=== PATIENT | male | born 1985 | race Caucasian/White ===

== ENCOUNTER 2023-07-27 13:41 | Emergency (ER) | payer OTHER, SELFPAY ==
--- NOTE | ~2023-07-27 | CT_ITS ---
EXAMINATION: CT abdomen pelvis wo con DATE: 07/27/2023 15:28 INDICATION: Right upper quadrant abdominal pain. Right lower pain. Fall. TECHNIQUE: Computed tomography (CT) of the abdomen and pelvis was performed without intravenous contr ast. Automated exposure control and iterative reconstruction technique were employed. The dose-length product was 714.92 mGy-cm. COMPARISON: CT abdomen and pelvis 06/28/2019 FINDINGS: The visualized portions of the lung bases demonstrate minimal atelectasis. No pleural effus ion. The heart size is normal. No pericardial effusion. The liver is normal. There are changes of cho lecystectomy. The spleen, pancreas, adrenal glands, and kidneys are normal. There is no urolithiasis. There are no dilated loops of bowel. The appendix is not visualized. There are no pathologically enl arged lymph nodes. There is no free intraperitoneal fluid. There is 4 mm anterolisthesis of L5 on S1. There is moderate lower lumbar spondylosis. There are chronic bilateral L5 pars defects. IMPRESSION: 1. No acute posttraumatic findings. Reviewed, dictated and finalized at location E.
--- NOTE | ~2023-07-27 | XR_ITS ---
[id number] DATE: 07/27/2023 14:16 INDICATION: Fall off of truck. Anterolateral right rib pain. TECHNIQUE: PA chest 4 views of right ribs. COMPARISON: None FINDINGS: Dextroscoliosis of the thoracic spine. No displaced right rib fracture is detected. Normal heart size. No hilar or mediastinal enlargement. The lungs are clear of infiltrate or consolid ation. No pneumothorax. Status post cholecystectomy. IMPRESSION: No displaced rib fracture is detected No active cardiopulmonary disease Reviewed, dictated and finalized at Location A. Reviewed, dictated and finalized at location L.
[2023-07-27 14:01] VITALS: BP 124/76; PULSE 69; RESP 20; TEMP 37; O2SAT 99
[2023-07-27] MEDS: ACETAMINOPHEN 500 MG TABLET 1000 MG PO (15:30)
--- NOTE | 2023-07-27 15:41 | ED.FALL ---
HPI - Fall General Chief Complaint: Fall Stated Complaint: fall today, pain on side and with breathing Time Seen by Provider: 07/27/23 14:46 Source: patient Mode of arrival: ambulatory Limitations: no limitations History of Present Illness HPI Narrative: Patient is a 38-year-old male who presents ED with report of right rib pain. Patient reports he was unloading something out of the back of a dump truck when he slipped and fell off the side. He landed onto a wheelbarrow directly on his right side. He complains of pain to his right upper abdomen, right ribs. He states pain is worse with taking a deep breath, but he denies feeling short of breath. Denies any nausea or vomiting. He has not taken anything for pain prior to arrival. Related Data Allergies Allergy/AdvReac Type Severity Reaction Status Date / Time aspirin AdvReac Mild STOMACH Verified 07/27/23 15:44 UPSET codeine AdvReac Mild UPSET Verified 07/27/23 15:44 STOMACH Review of Systems Review of Systems: CONSTITUTIONAL: Denies fever, chills, or sweats. CARDIOVASCULAR: Denies chest pain. RESPIRATORY: See HPI. GASTROINTESTINAL: See HPI. MUSCULOSKELETAL: See HPI. NEUROLOGIC: Denies tingling, numbness, or weakness. All systems reviewed & are unremarkable except as noted in HPI and below Exam Narrative: GENERAL: Well appearing, obese with BMI 32.1, non-toxic, in no acute distress. HEAD: Normocephalic, atraumatic. NECK: Supple. No adenopathy, no masses. RESPIRATORY: Airway patent, respirations nonlabored. Clear to auscultation bilaterally, no rales, rhonchi, wheezing. CARDIOVASCULAR: Regular rate and rhythm without murmurs, rubs, or gallops. Radial pulses 2+ and equal bilaterally. ABDOMINAL: Soft, tenderness in right upper/lateral abdomen, nondistended, no hepatosplenomegaly. Normoactive BS. MUSCULOSKELETAL: Moves all extremities. Strength/ROM intact without gross deformities. TTP along R anterior lateral lower R rib cage. No palpable bony deformities. SKIN: Warm, dry, normal color. No rashes. NEURO: A&O X3. Speech clear. Cranial nerves II-XII grossly intact. Steady gait. No ataxic movements. PSYCHIATRIC: Appropriate mood and affect. Normal interaction. Course Vital Signs Vital signs: Vital Signs Temperature 98.6 F 10/03/23 14:01 Pulse Rate 69 07/27/23 14:01 Respiratory Rate 20 07/27/23 14:01 Blood Pressure 124/76 07/27/23 14:01 Pulse Oximetry 99 07/27/23 14:01 Oxygen Delivery Room Air 07/27/23 14:01 Temperature 98.6 F 07/27/23 14:01 Pulse Rate 70 07/27/23 16:05 Respiratory Rate 18 07/27/23 16:05 Blood Pressure 138/86 07/27/23 16:05 Pulse Oximetry 99 07/27/23 16:05 Oxygen Delivery Room Air 07/27/23 14:01 MDM - Fall MDM Narrative Medical decision making narrative: Patient presented to ED status post fall onto right ribs. Complaining of pain to right anterior lateral lower ribs. Initial x-ray of chest with right ribs without evidence for displaced rib fracture, no pneumothorax or other cardiopulmonary abnormalities. Patient did have moderate tenderness throughout his right sided abdomen upon my exam. CT abdomen pelvis also obtained and does not show any traumatic findings. Patient was educated on rib contusion, incentive spirometry, pain control. Will prescribe [place] for home as well as lidocaine patches. Advised close follow-up with primary care doctor. Return precautions discussed. Discharged in stable condition. Vital stable throughout ED stay. Oxygen stable on room air. Medical Records Attestation: I reviewed the patient's medical records. Imaging Data Attestation: I personally reviewed and interpreted this imaging study as follows: Radiologist's impression: ITS Impressions Ribs w/Chest X-Ray 07/27/23 14:24 IMPRESSION: No displaced rib fracture is detected No active cardiopulmonary disease Abdomen/Pelvis CT 07/27/23 15:29 IMPRESSION: 1. No acute posttraumatic findings.
[2023-07-27] MEDS: KETOROLAC (*BKC) 60 MG/2 ML VIAL IM (15:57)
[2023-07-27 16:05] VITALS: BP 138/86; PULSE 70; RESP 18; O2SAT 99
== END 2023-07-27 16:12 | disposition home or self-care (01) ==
PROVIDERS: Emergency Provider Physician Assistant
DX: S20.211A Contusion of right front wall of thorax, initial encounter (principal); R07.81 Pleurodynia; W17.89XA Other fall from one level to another, initial encounter
CPT/HCPCS: 71101; 74176; 96372; 99284; A9270; J1885

== ENCOUNTER 2024-07-18 08:33 | Emergency (ER) | payer OTHER, SELFPAY ==
--- NOTE | ~2024-07-18 | CT_ITS ---
EXAMINATION: CT abdomen pelvis wo con DATE: 07/18/2024 09:09 INDICATION: Left-sided back pain. Kidney stones. TECHNIQUE: Computed tomography (CT) of the abdomen and pelvis was performed without intravenous contr ast. Automated exposure control and iterative reconstruction technique were employed. The dose-length product was 352.92 mGy-cm. COMPARISON: CT abdomen and pelvis 07/27/2023 FINDINGS: The visualized portions of the lung bases are clear without pneumonia or pleural effusion. The heart size is normal. No pericardial effusion. The liver is normal. There are changes of cholecys tectomy. The spleen, pancreas, adrenal glands, and right kidney are normal. There is a 3 mm stone in left kidney. There is dilated proximal jejunum. The appendix is not visualized. There are no patholog ically enlarged lymph nodes. There is no free intraperitoneal fluid. There are chronic bilateral L5 p ars defects. There is 5 mm anterolisthesis of L5 on S1. There is severe degenerative disc disease at L5-S1. IMPRESSION: 1. 3 mm nonobstructing left kidney stone. 2. Dilated proximal jejunum, likely adynamic ileus. Reviewed, dictated and finalized at location A.
[2024-07-18 08:36] VITALS: BP 149/77; PULSE 73; RESP 20; TEMP 36.3; O2SAT 98
[2024-07-18 08:48] LABS: Basophils Absolute Auto 0.1 K/mm3 (0.0-0.1); Basophils Percent Auto 0.8 % (0.2-1.2); Eosinophils Absolute Auto 0.5 K/mm3 (0-0.3); Eosinophils Percent Auto 3.5 % (0-4.4); Hematocrit 45.5 % (42.0-52.0); Hemoglobin 15.8 g/dL (14.0-18.0); Immature Granulocyte Absolute 0.08 K/mm3 (0.00-0.031); Immature Granulocyte Percent A 0.6 % (0-0.5); Lymphocytes Absolute Auto 2.58 K/mm3 (0.9-3.2); Lymphocytes Percent Auto 18.3 % (18.3-44.2); Mean Corpuscular HGB Conc 34.7 g/dl (32-36); Mean Corpuscular Hemoglobin 31.7 pg (26-34); Mean Corpuscular Volume 91.2 fl (80-100); Mean Platelet Volume 8.8 fl (7.4-10.4); Monocytes Absolute Auto 1.2 K/mm3 (0.1-0.6); Monocytes Percent Auto 8.4 % (2.6-8.5); Neutrophils Absolute Auto 9.6 K/mm3 (1.3-6.7); Neutrophils Percent Auto 68.4 % (45.5-73.1); Platelet Count Result 277 k/mm3 (150-375); Red Blood Count 4.99 M/mm3 (4.6-6.20); Red Cell Distribution Width 12.3 % (11.5-14.5); White Blood Count 14.1 K/mm3 (4.5-10.0)
[2024-07-18] MEDS: KETOROLAC 15 MG/ML VIAL (*BKC) IV PUSH (08:57)
[2024-07-18] MEDS: ACETAMINOPHEN 500 MG TABLET 1000 MG PO (08:57)
[2024-07-18] MEDS: HYDROmorphone HCL INJ (*CRX) 1 MG/ML SYR IV PUSH (08:57)
[2024-07-18] MEDS: SODIUM CHLORIDE 0.9% IV 2,000 ML 999 ML IV CONT (08:58)
[2024-07-18] MEDS: ONDANSETRON INJ 4 MG/2 ML VIAL IV PUSH (08:58)
[2024-07-18 09:04] LABS: Alanine Aminotransferase 22 U/L (6-50); Albumin Level 4.6 g/dL (3.5-5.1); Alkaline Phosphatase 64 U/L (38-126); Anion Gap 9 mmol/L (4-12); Aspartate Amino Transferase 32 U/L (17-59); Blood Urea Nitrogen 14 mg/dL (9-20); Calcium 9.7 mg/dL (8.4-10.2); Carbon Dioxide 25 mmol/L (22-30); Chloride 96 mmol/L (98-107); Estimated CRCL calculation 91 ml/min; Estimated Glomerular Filt Rate > 60; Glucose 87 mg/dL (65-110); Sodium 130 mmol/L (137-145)
[2024-07-18 09:22] LABS: Add Urine Microscopic? YES; Appearance Urine Clear (Clear); Bacteria Urine None Seen /hpf; Bilirubin Urine Negative (Negative); Blood Urine Trace (Negative); Color Urine Yellow (Yellow); Glucose Urine UA Negative (Negative); Ketones Urine Negative (Negative); Leukocyte Esterase Ur Trace LEU/UL (Negative); Nitrate Urine Negative (Negative); Non Pathogenic Casts 0-2; Protein Urine Negative (Negative); RBC Urine 0-2 /hpf (0-2); Specific Grav Ur 1.024 (1.001-1.035); Squamous Epithelial Cell Urine None Seen /hpf (Few); Urobilinogen Urine 0.2 mg/dL (<2.0); WBC Urine 0-5 /hpf (0-3); pH Urine 5.5 (5.0-9.0)
--- NOTE | 2024-07-18 10:20 | ED.GENADULT ---
HPI - General Adult General Chief complaint: Back Pain/Injury Stated complaint: back pain Time Seen by Provider: 07/18/24 08:41 History of Present Illness HPI narrative: This is a 39-year-old male presenting ED with chief complaint left-sided flank/abdominal pain. Pain is started this morning. His a cracking the cramping/aching pain. It is nonradiating constant and severe. Patient says that he may feel likely a kidney stone 20 years ago. No exacerbating alleviating factors. He has had an episode of nausea and vomiting. Last bowel movement was this morning which she described as ?rough. Sounds like he was constipated and had to strain. Patient denies fevers chills chest pain or urinary symptoms. Related Data Allergies Allergy/AdvReac Type Severity Reaction Status Date / Time aspirin AdvReac Mild STOMACH Verified 07/18/24 08:39 UPSET codeine AdvReac Mild UPSET Verified 07/18/24 08:39 STOMACH Exam Narrative: APPEARANCE: No apparent distress. Appears uncomfortable Head: atraumatic. EYES: EOMI, NOSE: Atraumatic NECK: Trachea midline RESPIRATORY: No increased rate of breathing clear to auscultation CARDIOVASCULAR: RRR, ABDOMINAL: Soft nontender no guarding rebound no CVA tenderness MUSCULOSKELETAl: No obvious deformities NEURO: Alert. Moving 4/4 extremities SKIN:: Warm, dry. Normal color PSYCHIATRIC: Normal affect Course Vital Signs Vital signs: Vital Signs Temperature 97.4 F L 07/18/24 08:36 Pulse Rate 73 07/18/24 08:36 Respiratory Rate 20 07/18/24 08:36 Blood Pressure 149/77 H 07/18/24 08:36 Pulse Oximetry 98 07/18/24 08:36 Oxygen Delivery Room Air 07/18/24 08:36 Temperature 97.4 F L 07/18/24 08:36 Pulse Rate 73 07/18/24 08:36 Respiratory Rate 20 07/18/24 08:36 Blood Pressure 149/77 H 07/18/24 08:36 Pulse Oximetry 98 07/18/24 08:36 Oxygen Delivery Room Air 07/18/24 08:36 Medical Decision Making [facility] Narrative Medical decision making narrative: -Course: 31-year-old male presenting with left-sided flank pain. CT abdomen pelvis ordered to evaluate. Showed jejunal ileus. Patient given IV fluids and pain medication and antiemetics. On re-evaluation the patient is feeling better. He is tolerating p.o.. Discussed admission versus discharge the patient would like a trial of outpatient management. Discharged with primary care follow-up return precautions. -DDX includes but is not limited to: Kidney stone, diverticulitis, gastroenteritis, colitis, ileus -Co-morbidities complicating care: History of kidney stone -Independent interpretation of studies: Left labs and imaging reviewed -Interventions: 2 L normal saline, Tylenol, Toradol, Dilaudid, Zofran, Reglan -Shared decision making / Disposition: Discharge -RX Zofran, Reglan Vital Signs Vital Signs: Vital Signs Temperature 97.4 F L 07/18/24 08:36 Pulse Rate 73 07/18/24 08:36 Respiratory Rate 20 07/18/24 08:36 Blood Pressure 149/77 H 07/18/24 08:36 Pulse Oximetry 98 07/18/24 08:36 Oxygen Delivery Room Air 07/18/24 08:36 Temperature 97.4 F L 07/18/24 08:36 Pulse Rate 73 07/18/24 08:36 Respiratory Rate 20 07/18/24 08:36 Blood Pressure 149/77 H 07/18/24 08:36 Pulse Oximetry 98 07/18/24 08:36 Oxygen Delivery Room Air 07/18/24 08:36 Lab Data 07/18/24 08:42 07/18/24 08:42 Labs: Lab Results 07/18/24 07/18/24 Range/Units 08:42 09:11 WBC 14.1 H (4.5-10.0) K/mm3 RBC 4.99 (4.6-6.20) M/mm3 Hgb 15.8 (14.0-18.0) g/dL Hct 45.5 (42.0-52.0) % MCV 91.2 (80-100) fl MCH 31.7 (26-34) pg MCHC 34.7 (32-36) g/dl RDW 12.3 (11.5-14.5) % Plt Count 277 (150-375) k/mm3 MPV 8.8 (7.4-10.4) fl Immature Gran % (Auto) 0.6 H (0-0.5) % Neut % (Auto) 68.4 (45.5-73.1) % Lymph % (Auto) 18.3 (18.3-44.2) % [place] % (Auto) 8.4 (2.6-8.5) % Eos % (Auto) 3.5 (0-4.4) % Baso % (Auto) 0.8 (0.2-
[2024-07-18] MEDS: METOCLOPRAMIDE HCL INJ 10 MG/2 ML VIAL IV PUSH (10:37)
== END 2024-07-18 10:56 | disposition home or self-care (01) ==
PROVIDERS: Emergency Provider Emergency Medicine
DX: K56.0 Paralytic ileus (principal)
CPT/HCPCS: 36415; 74176; 80053; 81001; 85025; 96361; 96374; 96375; 99284; A9270; J1170; J1885; J2405; J2765; J7030

== ENCOUNTER 2024-07-20 08:03 | Emergency (ER) | payer OTHER, SELFPAY ==
--- NOTE | ~2024-07-20 | CT_ITS ---
EXAMINATION: CT abdomen pelvis w con DATE: 07/20/2024 09:14 INDICATION: Upper gastrointestinal bleed TECHNIQUE: Computed tomography (CT) of the abdomen and pelvis was performed with 100 mL Omnipaque-350 intravenous contrast. Automated exposure control and iterative reconstruction technique were employe d. The dose-length product was 698.65 mGy-cm. COMPARISON: 07/18/2024 FINDINGS: Lung bases are clear. Heart size is normal. No pericardial or pleural effusion. Cholecystectomy clips the gallbladder fossa. Liver, spleen, pancreas, bilateral adrenal glands and right kidney are normal . Unchanged nonobstructing 2 mm stone at the mid left kidney. No bowel obstruction. Bladder is normal . No free intraperitoneal gas or fluid. No pathologically enlarged abdominal or pelvic lymphadenopath y. L5 spondylolysis with bilateral pars intra-articular is defects and 5 lumbar anterolisthesis L5 on S1. IMPRESSION: 1. No acute intra-abdominal/pelvic process. 2. 2 mm left renal stone. Reviewed, dictated and finalized at location A.
[2024-07-20 08:13] VITALS: BP 126/84; PULSE 57; RESP 18; TEMP 36.6
[2024-07-20 08:25] VITALS: BP 120/86; PULSE 60; RESP 17; TEMP 36.6; O2SAT 99
[2024-07-20] MEDS: SODIUM CHLORIDE 0.9% IV 1,000 ML 999 ML IV CONT (08:44)
[2024-07-20 08:45] LABS: Basophils Absolute Auto 0.1 K/mm3 (0.0-0.1); Basophils Percent Auto 0.7 % (0.2-1.2); Eosinophils Absolute Auto 0.1 K/mm3 (0-0.3); Eosinophils Percent Auto 1.7 % (0-4.4); Hematocrit 40.5 % (42.0-52.0); Hemoglobin 13.9 g/dL (14.0-18.0); Immature Granulocyte Absolute 0.05 K/mm3 (0.00-0.031); Immature Granulocyte Percent A 0.6 % (0-0.5); Lymphocytes Absolute Auto 1.76 K/mm3 (0.9-3.2); Lymphocytes Percent Auto 21.8 % (18.3-44.2); Mean Corpuscular HGB Conc 34.3 g/dl (32-36); Mean Corpuscular Hemoglobin 31.4 pg (26-34); Mean Corpuscular Volume 91.6 fl (80-100); Monocytes Absolute Auto 0.7 K/mm3 (0.1-0.6); Monocytes Percent Auto 8.3 % (2.6-8.5); Neutrophils Absolute Auto 5.4 K/mm3 (1.3-6.7); Neutrophils Percent Auto 66.9 % (45.5-73.1); Platelet Count Result 216 k/mm3 (150-375); Red Blood Count 4.42 M/mm3 (4.6-6.20); Red Cell Distribution Width 12.3 % (11.5-14.5); White Blood Count 8.1 K/mm3 (4.5-10.0)
[2024-07-20] MEDS: PANTOPRAZOLE SODIUM IV 40 MG VIAL IV PUSH (08:45)
[2024-07-20 08:49] VITALS: BP 121/82; PULSE 52; RESP 14; O2SAT 99
--- NOTE | 2024-07-20 08:52 | PC.NURSE ---
Charting done by Cindy Barraza practical nursing teacher reviewed and RN agrees
[2024-07-20 08:54] LABS: Lactic Acid Reflex 1.2 mmol/L (0.7-2.0)
[2024-07-20 08:55] LABS: Alanine Aminotransferase 20 U/L (6-50); Albumin Level 3.9 g/dL (3.5-5.1); Alkaline Phosphatase 49 U/L (38-126); Anion Gap 7 mmol/L (4-12); Aspartate Amino Transferase 24 U/L (17-59); Bilirubin,Total 0.4 mg/dL (0.2-1.3); Blood Urea Nitrogen 9 mg/dL (9-20); Calcium 8.5 mg/dL (8.4-10.2); Carbon Dioxide 23 mmol/L (22-30); Chloride 106 mmol/L (98-107); Estimated CRCL calculation 100 ml/min; Estimated Glomerular Filt Rate > 60; Glucose 97 mg/dL (65-110); Lipase 1230 U/L (23-300); Potassium 4.2 mmol/L (3.4-5.0); Sodium 136 mmol/L (137-145)
--- NOTE | 2024-07-20 08:55 | ED.GENADULT ---
HPI - General Adult General Chief complaint: GI Bleed Stated complaint: VOMITING BLOOD Time Seen by Provider: 07/20/24 08:15 History of Present Illness HPI narrative: 39-year-old male presented to the emergency department for evaluation after an episode of hematemesis. Patient was recently evaluated in the emergency department diagnosed with a suspected ileus. Patient declined admission at that time and preferred to try taking care of this at home. Patient states he did switch to a clear liquid diet. Patient reports this morning he did have a significant bowel movement but then also had onset abdominal cramping. Patient states he did have some blood in his vomit. Patient had a single episode emesis at approximately 7:30 a.m.. Patient has not had emesis since then. Patient denies any current abdominal pain or associated nausea. Patient is not on any blood thinners. Patient denies any prior history gastric ulcer. Patient does not take ibuprofen. Patient does report prior history abdominal pain and has had multiple colonoscopies by GI. Patient also has a history cholecystectomy. Related Data Allergies Allergy/AdvReac Type Severity Reaction Status Date / Time aspirin AdvReac Mild STOMACH Verified 07/20/24 08:38 UPSET codeine AdvReac Mild UPSET Verified 07/20/24 08:38 STOMACH Review of Systems Review of Systems: All systems reviewed & are unremarkable except as noted in HPI and below Exam Narrative: APPEARANCE: Well appearing, no pain, no distress, well-nourished. HEAD: normocephalic, atraumatic. EYES: PERRLA/EOMI, conjunctivae clear. NOSE: Normal no drainage EARS:TMS clear with good light reflex. THROAT: Pharynx clear, no exudate. NECK: Supple. No adenopathy, no masses. RESPIRATORY: Airway patent, respirations nonlabored. Clear to auscultation bilaterally, no rales, rhonchi, wheezing. CARDIOVASCULAR: Regular rate and rhythm without murmurs rubs or gallops. ABDOMINAL: Soft, nontender, nondistended, normal bowel sounds MUSCULOSKELETAL: Moves all extremities. Strength/ROM intact, No edema, No calf tenderness. NEURO: Alert. Cranial nerves II through XII intact. Grossly intact SKIN: Warm, dry. Normal Color Course Course Emergency Course: Patient preferred to be discharged home Vital Signs Vital signs: Vital Signs Temperature 97.8 F 07/20/24 08:13 Pulse Rate 57 L 07/20/24 08:13 Respiratory Rate 18 07/20/24 08:13 Blood Pressure 126/84 07/20/24 08:13 Temperature 97.9 F 07/20/24 08:25 Pulse Rate 74 07/20/24 10:20 Respiratory Rate 15 07/20/24 10:20 Blood Pressure 135/105 H 07/20/24 10:20 Pulse Oximetry 100 07/20/24 10:20 Oxygen Delivery Room Air 07/20/24 08:25 Medical Decision Making [facility] Narrative Medical decision making narrative: 39-year-old male presents to the emergency department for evaluation for nausea vomiting abdominal pain. Describes lower abdominal pain. Patient reports he did have an episode of hematemesis with home without has had no further emesis or hematemesis in the emergency department. Patient is afebrile and hemoglobin is similar to his baseline at 13.9. Patient has no acute abnormalities his CMP with normal T bili AST ALT alk-phos. Patient's lipase is elevated. CT scan showed no evidence of pancreatitis. On re-evaluation patient states he does feel improved. Patient was offered admission for possible upper GI bleed and for pancreatitis. Patient states he feels improved and declined admission. Patient was started on omeprazole, encouraged close follow-up with GI. All questions concerns were addressed. Differential Diagnosis Differential Diagnosis: Colitis, diverticulitis, appendicitis, pancreatitis, upper GI bleed, gastric Vital Signs Vital Signs: Vital Signs Temperature 97.8 F 07/20/24 08:13 Pulse Rate 57 L 07/20/24 08:13 Respiratory Rate 18 07/20/24 08:13 Blood Pressure 126/84 07/20/24 08:13 Temperature 97.9 F 0
[2024-07-20 08:59] LABS: INR 0.9; Prothrombin Time 12.8 Seconds (11.1-14.7)
[2024-07-20 09:00] LABS: Partial Thromboplastin Time 26.4 Seconds (22.3-36.8)
[2024-07-20 10:20] VITALS: BP 135/105; PULSE 74; RESP 15; O2SAT 100
[2024-07-20] MEDS: HYDROmorphone HCL INJ (*CRX) 1 MG/ML SYR IV PUSH (10:20)
== END 2024-07-20 10:59 | disposition home or self-care (01) ==
PROVIDERS: Emergency Provider Emergency Medicine
DX: K85.90 Acute pancreatitis without necrosis or infection, unspecified (principal); K92.0 Hematemesis; Z90.49 Acquired absence of other specified parts of digestive tract; N20.0 Calculus of kidney
CPT/HCPCS: 36415; 74177; 80053; 83605; 83690; 85025; 85610; 85730; 86850; 86900; 86901; 96361; 96374; 96375; 99284; J1170; J2470; J7030; Q9967

== ENCOUNTER 2025-05-14 15:41 | Emergency (ER) | payer OTHER, SELFPAY ==
--- NOTE | ~2025-05-14 | XR_ITS ---
HISTORY: pain X 3 WEEKS COMPARISON: None TECHNIQUE: 2 views of the left elbow were performed FINDINGS: No acute fracture is identified. Elevation of the anterior fat pad is identified suggesting a joint effusion. Overlying soft tissues are otherwise unremarkable. Bone mineralization is age-appropriate. IMPRESSION: Joint effusion, without acute fracture appreciated. Reviewed, dictated and finalized at location A.
--- NOTE | ~2025-05-14 | XR_ITS ---
HISTORY: pain NO FALL NO TRAUMA COMPARISON: None TECHNIQUE: 2 views of the left shoulder were performed FINDINGS: No acute displaced fracture. Osteophyte formation is identified within the distal left clavicle with up sloping and joint space na rrowing. The glenohumeral joint space is maintained The visualized portion of the adjacent left lung is clear. The humeral head is well seated within the glenoid fossa. IMPRESSION: Degenerative disease within the acromioclavicular joint space. No acute displaced fracture or anterior dislocation. Reviewed, dictated and finalized at location A.
--- OUTSIDE RECORDS SUMMARY | 2025-05-14 15:43 | XMS_ITS | Clinical Summary ---
Author Organization [facility] Address [address] [place] [address] Phone Care Team Providers Care Rd Manager Name Role Phone Provider, None Primary Care Provider Unavailabl e Allergies No known active allergies Medications naproxen (NAPROSYN) 500 MG Tablet Take 1 Tablet by mouth 2 times daily as needed for Mild or more severe pain. 20 Tablet 04/17/2025 Active Active Problems Problem Noted Date Diagnosed Date Kidney stone on left side 12/17/2024 Encounters Date Type Department Care Team Description 04/17/2025 8:11 AM CDT - 04/17/2025 1:00 PM CDT Emergency [facility] Emergency [address] [place] [address] Lucero Luna MD Lateral epicondylitis of left elbow Discharge Disposition: Discharged to home or Selfcare 04/17/2025 Travel from Last 3 Months Social History Tobacco Use Types Packs/Day Years Used Date Smoking Tobacco: Unknown Tobacco Cessation:Counseling Given: Not Answered Sex and Gender Information Value Date Recorded Sex Assigned at Not on file 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 Gender Identity Not on file Sexual Orientation Not on file Last Filed Vital Signs Vital Sign Reading Time Taken Comments Blood Pressure 125/84 04/17/2025 12:45 PM CDT Pulse 67 04/17/2025 12:45 PM CDT Temperature 36.6 C (97.8 F) 04/17/2025 8:16 AM CDT Respiratory Rate 16 04/17/2025 12:4 5 PM CDT Oxygen Saturation 99% 04/17/2025 12: 45 PM CDT Inhaled Oxygen Concentration - - Weight 87.9 kg (193 lb 12.6 oz) 04/17/2025 8:16 AM CDT Height 165.1 cm (5' 5) 04/17/2025 8:16 AM CDT Body Mass Index 32.25 04/17/2025 8:16 AM CDT Plan of Treatment Health Maintenance Due Date Last Done Comments Hepatitis C Virus (HCV) Screening 1986 TdaP Immunization 1986 Human Papillomavirus (HPV) Immunization (1 - Male 3-dose series) 2001 Hepatitis B Immunization (1 of 3 - 19+ 3-dose series) 2005 SARS-COV-2 Immunization ( - season) 2024 Influenza Immunization (#1) 2025 Respiratory Syncytial Virus (RSV) Immunization (Adult) (1 - 1-dose 75+ series) 2061 Meningococcal Immunization (ACWY) Aged Out No longer eligible based on patient's age to complete this topic Pneumococcal Immunization Combined Aged Out No longer eligible based on patient's age to complete this topic Rotavirus Immunization Aged Out No lo nger eligible based on patient's age to complete this topic Procedures Procedure Name Priority Date/Time Associated Diagnosis Comments XR ELBOW MINIMUM 3 VIEWS LEFT STAT 04/17/2025 9:07 AM CDT from Last 3 Months Results * XR ELBOW MINIMUM 3 VIEWS LEFT (04/17/2025 9:07 AM CDT) Anatomical Region Laterality Modality UPPER EXTREMITY, elbow Left Digital R adiography 04/17/2025 9:41 AM CDT Impressions 04/17/2025 9:43 AM CDT IMPRESSION: No acute osseous abnormality. Narrative 04/17/2025 9:43 AM CDT EXAM DESCRIPTION: XR ELBOW MINIMUM 3 VIEWS LEFT REASON FOR STUDY: Lt elbow pain, sweeling after patient was moving furniture and heard a pop a week ago, unable to bend or move his arm TECHNIQUE: 3 radiographic view(s) of the left elbow . COMPARISON: None FINDINGS: There is no fracture or dislocation appreciated. No significant degenerative change. No joint effusion. THIS IS AN ELECTRONICALLY VERIFIED FINAL REPORT 04/17/2025 9:41 AM - Electronically signed by Faustino Barajas M.D. AM: AM Report ID: [id number] Reading Location: [id number] Procedure Note Faustino Barajas MD - 04/17/2025 EXAM DESCRIPTION: XR ELBOW MINIMUM 3 VIEWS LEFT REASON FOR STUDY: Lt elbow pain, sweeling after patient was moving furniture and heard a pop a week ago, unable to bend or move his arm TECHNIQUE: 3 radiographic view(s) of the left elbow . COMPARISON: None FINDINGS: There is no fracture or dislocation appreciated. No significant degenerative change. No joint effusion. THIS IS AN ELECTRONICALLY VERIFIED FINAL REPORT 04/17/2025 9:41 AM - Electronically signed by Faustino Barajas M.D. AM: AM Report ID: [id number] Reading Location: [id number] IMPRESSION: No acute osseous abnormality. Lucero Luna MD IMG DIAGNOSTIC ORDERABLE S Final Result from Last 3 Months Insurance MEDICAID [place] Advance Directives * Full Code (Latest Code Status on File) Date Activated Date Inactivated Comments 12/17/2024 7:12 PM CPR-Full Treat ment: FULL ARREST: Attempt Resuscitation/CPR wit intubation and mechanical ventilation. PRE-ARREST: Use entire range of life support measures to stabilize the patient. Care Teams Rd Manager Relationship Specialty Start Date End Date Provider, None [place] PCP - General 12/17/24
[2025-05-14 16:09] VITALS: BP 133/73; PULSE 63; RESP 14; TEMP 36.4; O2SAT 99
--- OUTSIDE RECORDS SUMMARY | 2025-05-14 17:31 | XMS_ITS | Clinical Summary ---
Author Organization [facility] Address [address] [place] [address] Phone Care Team Providers Care Engine Service Repairer Name Role Phone Provider, None Primary Care [...] 04/17/2025 1:00 PM CDT Emergency [facility] Emergency [address] [place] [address] Lucero Luna MD Lateral epicondylitis of left elbow Discharge Disposition: Discharged to home or Selfcare 04/17/2025 Travel from Last 3 Months Social History Tobacco Use Types Packs/Day Years Used Date Smoking Tobacco: Unknown Tobacco Cessation:Counseling Given: Not Answered Sex and Gender Information Value Date Recorded Sex Assigned at Not on file 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 AM: AM Report ID: [id number] Reading Location: [id number] Procedure Note Faustino Barajas MD - 04/17/2025 [...] Faustino Barajas M.D. AM: AM Report ID: [id number] Reading Location: [id number] IMPRESSION: No acute osseous abnormality. Lucero Luna MD IMG DIAGNOSTIC ORDERABLE S Final Result from Last 3 Months Insurance MEDICAID [place] Advance Directives * Full Code (Latest Code Status on File) Date Activated Date Inactivated Comments 12/17/2024 7:12 PM CPR-Full Treat ment: FULL ARREST: Attempt Resuscitation/CPR wit intubation and mechanical ventilation. PRE-ARREST: Use entire range of life support measures to stabilize the patient. Care Teams Engine Service Repairer Relationship Specialty Start Date End Date Provider, None [place] PCP - General 12/17/24
[2025-05-14] MEDS: ACETAMINOPHEN 500 MG TABLET 1000 MG PO (17:35)
[2025-05-14] MEDS: KETOROLAC (*BKC) 60 MG/2 ML VIAL IM (17:35)
--- NOTE | 2025-05-14 17:43 | ED_ITS ---
HPI - Extremity Injury (Upper) General Chief Complaint: Extremity Injury, Upper Stated Complaint: left arm injury Time Seen by Provider: 05/14/25 16:54 Source: patient Mode of arrival: ambulatory Limitations: no limitations History of Present Illness HPI narrative: Patient is a 39-year-old male who presents the ED with report of left elbow/shoulder pain. Patient reports he injured his left shoulder/elbow around 3 weeks ago. Has been icing and wearing an elbow brace and thought his pain was improving. States last night he was wrestling with his son and his son fell out on to his left arm. He complains of worsening pain throughout his left elbow/biceps region since then. Has not had anything for pain today. Denies numbness, tingling, weakness. Denies CP, SOB. Related Data Allergies Allergy/AdvReac Type Severity Reaction Status Date / Time aspirin AdvReac Mild STOMACH Verified 05/14/25 16:11 UPSET codeine AdvReac Mild UPSET Verified 05/14/25 16:11 STOMACH Review of Systems Review of Systems: All systems reviewed & are unremarkable except as noted in HPI. All systems reviewed & are unremarkable except as noted in HPI and below Exam Narrative: GENERAL: Well appearing, well-nourished, non-toxic, in no acute distress. HEAD: Normocephalic, atraumatic. RESPIRATORY: Airway patent, respirations nonlabored. CARDIOVASCULAR: Regular rate and rhythm. Radial pulses strong and easily palpable. MUSCULOSKELETAL: Moves all extremities. No gross deformities. Mild tenderness to palpation along distal left humerus region near insertion of biceps tendon. Biceps tendon is intact, able to be flexed. Mild tenderness throughout anterior left shoulder. No significant bony tenderness throughout L elbow. Sensation intact. SKIN: Warm, dry, normal color. NEURO: A&O X3. Speech clear. No ataxic movements. No focal deficits. PSYCHIATRIC: Appropriate mood and affect. Normal interaction. Course Vital Signs Vital signs: Vital Signs Temperature 97.6 F 05/14/25 16:09 Pulse Rate 63 05/14/25 16:09 Respiratory Rate 14 05/14/25 16:09 Blood Pressure 133/73 05/14/25 16:09 Pulse Oximetry 99 05/14/25 16:09 Temperature 97.6 F 05/14/25 16:09 Pulse Rate 63 05/14/25 16:09 Respiratory Rate 14 05/14/25 16:09 Blood Pressure 133/73 05/14/25 16:09 Pulse Oximetry 99 05/14/25 16:09 MDM - Extremity Injury (Upper) MDM Narrative Medical decision making narrative: Patient?s injury is consistent with musculoskeletal etiology. No signs of neurologic or vascular compromise on physical examination. Compartments are soft without signs of compartment syndrome. XR of L shoulder and L elbow negative for osseous abnormality, does show left elbow joint effusion. Pain is consistent with elbow strain, possible biceps tendon strain. Patient has a brace to wear over his left elbow. He also reports he has a sling at home. Patient is felt to be stable for discharge home and further outpatient management and treatment. Discussed rice therapy, continued pain management at home. Will refer to orthopedics for further evaluation if needed. Given return precautions. Discharged in stable condition. Medical Records Attestation: I reviewed the patient's medical records. Imaging Data Attestation: I personally reviewed and interpreted this imaging study as follows: Radiologist's impression: ITS Impressions Elbow X-Ray 05/14/25 17:27 IMPRESSION: Joint effusion, without acute fracture appreciated. Shoulder X-Ray 05/14/25 17:28 IMPRESSION: Degenerative disease within the acromioclavicular joint space. No acute displaced fracture or anterior dislocation. Discharge Plan Discharge Clinical Impression: Strain of left elbow, Effusion of elbow joint, left Patient Disposition: Home Condition: Stable Instructions: Antibiotic Form, P.R.I.C.E. Treatment (ED), Elbow Strain (ED) Additional Instructions: Recommend rest, ice, elevation of arm. Denies splint or sling as needed for comfort/support. Continue Tylenol/ibuprofen as needed for pain. Follow-up with orthopedics for further evaluation if needed. Return to the ED for new or worsening concerns. Patient Language: Croatian Prescriptions: No Action omeprazole 20 mg capsule,delayed release(DR/EC) 20 mg PO DAILY Qty: 14 0RF hydrocodone-acetaminophen 5-325 mg tablet 1 tablet PO Q12H PRN (Reason: pain) Qty: 14 0RF hydrocodone-acetaminophen 5-325 mg tablet 1 tablet PO Q6H PRN (Reason: pain) Qty: 12 0RF lidocaine 5 % adhesive patch,medicated 1 patch topical DAILY Qty: 15 0RF Rx Instructions: leave on most painful area for up to 12 hrs metoclopramide HCl [Reglan] 10 mg tablet 10 mg PO Q6H PRN (Reason: nausea and vomiting) Qty: 30 0RF ondansetron 4 mg tablet,disintegrating 4 mg PO Q8H PRN (Reason: nausea and vomiting) Qty: 30 0RF Follow-up/Referrals: Claude Javier MD [Physician] - (ORTHOPEDICS) [facility] [Primary Care Provider] -
[2025-05-14 18:28] VITALS: BP 115/91; PULSE 69; RESP 15; TEMP 36.7; O2SAT 100
== END 2025-05-14 18:31 | disposition home or self-care (01) ==
PROVIDERS: Emergency Provider Physician Assistant
DX: M25.422 Effusion, left elbow (principal); S46.812A Strain of other muscles, fascia and tendons at shoulder and upper arm level, left arm, initial encounter; W19.XXXA Unspecified fall, initial encounter
CPT/HCPCS: 73030; 73070; 96372; 99284; A9270; J1885

== ENCOUNTER 2025-07-09 08:03 | Outpatient (CLI) | payer OTHER, SELFPAY ==
--- NOTE | ~2025-07-09 | MR_ITS ---
EXAMINATION: MR elbow LT wo con DATE: 07/09/2025 08:43 INDICATION: Left elbow strain of muscle, fascia and tendon TECHNIQUE: Magnetic resonance imaging (MRI) of the left elbow was performed without intravenous contrast. Sequences included coronal, axial, and sagittal PD-weighted FS FSE and coronal, axial, and sagittal PD-weighted FSE. COMPARISON: None FINDINGS: Osseous/other: Normal alignment. Normal marrow signal with no marrow edema, fracture, osteochondral lesion or abnormal marrow replacing process. Tendons: Triceps and brachialis tendons are normal. Moderate tendinopathy and partial thickness tear of the distal biceps brachii tendon. Common flexor tendon wad is normal. Mild tendinopathy without tear at the lateral epicondylar origin of the common extensor tendon wad. Ligaments: The medial and lateral collateral ligament complexes are normal. Cubital tunnel: Cubital tunnel is unremarkable with normal signal and caliber of the ulnar nerve. Fluid: Physiologic amount of fluid the elbow joint. There is a small amount of likely reactive fluid surrounding the partially torn distal biceps brachii tendon IMPRESSION: 1. Moderate tendinopathy and partial-thickness tear of the distal biceps brachii tendon. 2. Mild tendinopathy without tear at the lateral epicondylar origin of the common extensor tendon wad. Reviewed, dictated and finalized at location A. IMPRESSION: 1. Moderate tendinopathy and partial-thickness tear of the distal biceps brachi i tendon. 2. Mild tendinopathy without tear at the lateral epicondylar origin of the comm on extensor tendon wad.
--- OUTSIDE RECORDS SUMMARY | 2025-07-09 08:30 | XMS_ITS | Clinical Summary ---
Author Organization [facility] Address [address] [place] [address] Phone Care Team Providers Care Kitchen Aide Name Role Phone Provider, None Primary Care [...] 04/17/2025 1:00 PM CDT Emergency [facility] Emergency [address] [place] [address] Lucero Luna MD Lateral epicondylitis of left elbow Discharge Disposition: Discharged to home or Selfcare 04/17/2025 Travel from Last 3 Months Social History Tobacco Use Types Packs/Day Years Used Date Smoking Tobacco: Unknown Tobacco Cessation:Counseling Given: Not Answered Sex and Gender Information Value Date Recorded Sex Assigned at Not on file 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 AM: AM Report ID: [id number] Reading Location: [id number] Procedure Note Faustino Barajas MD - 04/17/2025 [...] Faustino Barajas M.D. AM: AM Report ID: [id number] Reading Location: [id number] IMPRESSION: No acute osseous abnormality. Lucero Luna MD IMG DIAGNOSTIC ORDERABLE S Final Result from Last 3 Months Insurance [place] Advance Directives * Full Code (Latest Code Status on File) Date Activated Date Inactivated Comments 12/17/2024 7:12 PM CPR-Full Treat ment: FULL ARREST: Attempt Resuscitation/CPR wit intubation and mechanical ventilation. PRE-ARREST: Use entire range of life support measures to stabilize the patient. Care Teams Kitchen Aide Relationship Specialty Start Date End Date Provider, None [place] PCP - General 12/17/24
== END 2025-07-09 08:04 | disposition home or self-care (01) ==
PROVIDERS: Visit Provider Physician Assistant Surgical
DX: S46.212A Strain of muscle, fascia and tendon of other parts of biceps, left arm, initial encounter (principal); X58.XXXA Exposure to other specified factors, initial encounter
CPT/HCPCS: 73221